=== PATIENT | male | born 1980 | race Caucasian/White ===

== ENCOUNTER 2023-12-01 10:49 | Emergency (ER) | payer OTHER, SELFPAY ==
[2023-12-01 10:54] VITALS: BP 159/84
[2023-12-01 11:16] VITALS: BMI 23.7
--- NOTE | 2023-12-01 12:05 | ED.SKININJ ---
HPI-Injury
General
Chief Complaint: Skin Surface Trauma
Source: patient
Exam Limitations: none
Time Seen by Provider: 12/01/23 11:21
Travel History
Have you had any contact with someone who has COVID-19?: No
Do you have any symptoms of coronavirus? Fever > 100 degrees, chills, cough, shortness of breath, sore throat, loss of taste or smell, muscle aches, or headache?: No
History of Present Illness-Injury
Initial Injury comments:
43-year-old male presents with laceration to right medial thigh he sustained today. He was using a saw grinder cutting metal and the saw grinder bound and bounced back and cut his leg. Last tetanus unknown. He denies numbness or tingling to the leg. No
other complaints at this time
Phy Exam
Physical Exam
Physical Exam:
General: Well-appearing male no acute respiratory
Skin: 6 cm laceration right medial thigh through subcutaneous tissue. Muscle fascia or vascular injury not evident
Musculoskeletal exam: Full range of motion right hip and knee
Neurologic: Good sensation right leg
Vascular: Good distal pulses to the right leg
Course
Orders/Labs/Results
Orders:
Orders
12/01/23 11:56
Tetanus/Diphth/Acelpertussis [Adacel] 0.5 ml IM .ONCE ONE
Vital Signs
Initial and Last Documented VS:
Initial Vital Signs
Temp Pulse Resp BP Pulse Ox
98.1 F 76 20 159/84 99
12/01/23 10:54 12/01/23 10:54 12/01/23 10:54 12/01/23 10:54 12/01/23 10:54
Last Documented Vital Signs
Temp Pulse Resp BP Pulse Ox
98.1 F 76 20 159/84 99
12/01/23 10:54 12/01/23 10:54 12/01/23 10:54 12/01/23 10:54 12/01/23 10:54
MDM/Problems Addressed
Differential Diagnosis Includes:
Laceration right medial thigh. There are some pieces of clothing in the wound. No active bleeding. The wound was copiously irrigated with saline and all visible foreign bodies were removed with forceps. The wound was then anesthetized with 1%
lidocaine with epinephrine and closed in a layered fashion using 4-0 Vicryl for the subcutaneous tissue and 4-0 Prolene for the skin. Total of 19 sutures were required. Tetanus vaccine updated. Patient stable for discharge
*Critical Care Note
Total Time (30-74mins, 75-104mins- exclusive of procedures): Not Applicable
ED Attending Note
-
Portions of this chart may have been created with voice recognition software.� Occasional wrong word or��sound alike� substitutions may have occurred due to the inherent limitations of voice recognition software.
Discharge Plan
Departure
Patient Disposition: Home (Routine Discharge)
Date of Disposition: 12/01/23
Time of Disposition: 12:08
Patient with high blood pressure during this ER visit?: No
Discharge Problem:
Laceration
Instructions: Laceration Repair With Stitches (DC)
Referrals:
Shai Garcia MD [Family Provider] -
Activity Restrictions/Additional Instructions:
Keep clean. Pat dry when done with shower. Have sutures removed in 2 weeks. Return here if needed otherwise
Interventions
Interventions:
*Risk Screen - Suicide Last Done: 12/01/23 11:18
*ED COVID-19 Vaccine History Last Done: 12/01/23 11:18
ED-Skin Assessment Last Done: 12/01/23 11:18
Discharge Date and Time
Print Language: TURKISH
[2023-12-01] MEDS: ADACEL 0.5 ML IM (12:06)
== END 2023-12-01 12:15 | disposition home or self-care (01) ==
LOC: EMR 10:49
PROVIDERS: EMERGENCY PHYSICIAN Emergency Medicine; FAMILY PHYSICIAN Family Medicine
PROC: 0JQL0ZZ Repair Right Upper Leg Subcutaneous Tissue and Fascia, Open Approach (ICD-10-PCS; 2023-12-01)
DX: S71.121A Laceration with foreign body, right thigh, initial encounter (principal); W31.1XXA Contact with metalworking machines, initial encounter; Y93.89 Activity, other specified
CPT/HCPCS: 12032; 99282; 90471; 90715